=== PATIENT | female | born 1960 | race Caucasian/White ===

== ENCOUNTER → 2017-07-02 | Outpatient (CLI) | payer BC | LOC: MAMMO 12:45 | DX: Z12.31 Encounter for screening mammogram for malignant neoplasm of breast (principal) | CPT/HCPCS: G0202 ==

== ENCOUNTER → 2018-07-08 | Outpatient (CLI) | payer BC | LOC: MAMMO 13:07 | DX: Z12.31 Encounter for screening mammogram for malignant neoplasm of breast (principal) ==

== ENCOUNTER → 2018-10-30 | Outpatient (CLI) | payer BC | LOC: RAD 10:53 | DX: M25.551 Pain in right hip (principal) ==

== ENCOUNTER 2018-12-09 11:15 | Outpatient (RCR) | payer BC | END 2018-12-09 12:00 | disposition home or self-care (01) | LOC: PT 11:15 | DX: S76.011A Strain of muscle, fascia and tendon of right hip, initial encounter (principal) ==

== ENCOUNTER 2019-04-19 13:00 | Outpatient (RCR) | payer BC | END 2019-05-05 | disposition still patient (30) | LOC: PT | DX: S46.011A Strain of muscle(s) and tendon(s) of the rotator cuff of right shoulder, initial encounter (principal) ==

== ENCOUNTER → 2019-07-12 | Outpatient (CLI) | payer BC | LOC: MAMMO 10:55 | DX: Z12.31 Encounter for screening mammogram for malignant neoplasm of breast (principal) ==

== ENCOUNTER → 2020-08-10 | Outpatient (CLI) | payer BC | LOC: MAMMO 09:14 | DX: Z12.31 Encounter for screening mammogram for malignant neoplasm of breast (principal) ==

== ENCOUNTER → 2021-05-10 | Outpatient (CLI) | payer BC | LOC: CARDREHAB 10:52 → CARDLAB 15:42 | DX: G47.19 Other hypersomnia (principal) | CPT/HCPCS: G0399 ==

== ENCOUNTER → 2021-08-01 | Outpatient (CLI) | payer BC | LOC: MAMMO 09:55 | DX: Z12.31 Encounter for screening mammogram for malignant neoplasm of breast (principal) ==

== ENCOUNTER → 2022-03-25 | Outpatient (CLI) | payer BC | LOC: RAD 18:59 | DX: S83.242A Other tear of medial meniscus, current injury, left knee, initial encounter (principal); M94.262 Chondromalacia, left knee; X58.XXXA Exposure to other specified factors, initial encounter ==

== ENCOUNTER 2022-04-10 11:01 | Outpatient (RCR) | payer BC | END 2022-04-24 | disposition home or self-care (01) | LOC: PT | DX: S89.92XA Unspecified injury of left lower leg, initial encounter (principal); M11.262 Other chondrocalcinosis, left knee ==

== ENCOUNTER → 2022-08-06 | Outpatient (CLI) | payer BC | LOC: MAMMO 09:53 | DX: Z13.820 Encounter for screening for osteoporosis (principal); Z12.31 Encounter for screening mammogram for malignant neoplasm of breast; M85.80 Other specified disorders of bone density and structure, unspecified site; Z78.0 Asymptomatic menopausal state ==

== ENCOUNTER 2023-07-28 09:01 | Outpatient (RCR) | payer BC | END 2023-08-24 | disposition home or self-care (01) | LOC: PT → EDSTATUS 09:17 | DX: M17.0 Bilateral primary osteoarthritis of knee (principal) ==

== ENCOUNTER → 2023-07-30 | Outpatient (CLI) | payer BC | LOC: MAMMO 09:28 | DX: Z12.31 Encounter for screening mammogram for malignant neoplasm of breast (principal) ==

== ENCOUNTER → 2024-08-09 | Outpatient (CLI) | payer BC | LOC: MAMMO 09:55 | DX: Z12.31 Encounter for screening mammogram for malignant neoplasm of breast (principal) ==